=== PATIENT | female | born 1965 | race Caucasian/White ===

== ENCOUNTER 2016-07-08 10:23 | Emergency (ER) | payer OTHER ==
[~2016-07-08] VITALS: Ht 162.6 cm; Wt 74.0 kg
[2016-07-08 12:32] LABS: HEMATOCRIT 39.8 % (36.0-46.0); MCH 29.6 PG (29.0-34.0); MCHC 34.2 G/DL (30.0-36.0); MCV 86.5 FL (83-99); RBC DIS.WIDTH-SD 40.9 % (39-53); WHITE BLOOD COUNT 6.3 K/uL (4.1-10.2)
[2016-07-08 12:55] LABS: AMYLASE 25 IU/L (1-118); CHLORIDE 107 mEq/L (99-109); POTASSIUM 3.7 mEq/L (3.7-5.4); SODIUM 139 mEq/L (136-147)
[2016-07-08 12:57] LABS: GLUCOSE 89 mg/dL (70-99); QUANTITATIVE HCG < 4.0 MIU/ML
[2016-07-08 12:58] LABS: ANION GAP 9 MEQ/L (2-14)
[2016-07-08 12:59] LABS: TOTAL BILIRUBIN 0.4 mg/dL (0.0-1.0)
[2016-07-08 13:00] LABS: ALKALINE PHOSPHATASE 72 IU/L (3-129)
[2016-07-08 13:01] LABS: GFR ESTIMATE (CALCULATED) > 59 mL/min/
[2016-07-08 13:02] LABS: UREA NITROGEN (BUN) 10 mg/dL (9-23)
[2016-07-08 13:04] LABS: LIPASE 8 U/L (1.0-51.0)
[2016-07-08] MEDS ORDERED: OMEPRAZOLE40 M1 PO (13:15)
[2016-07-08 13:39] LABS: MEAN PLAT.VOLUME 10.9 uM^3 (9.5-12.4); PLAT.SUFFICIENCY ADEQUATE; PLATELET COUNT 256 K/uL (156-360)
[2016-07-08 13:47] VITALS: BP 152/113
== END 2016-07-08 13:48 | disposition home or self-care (01) ==
LOC: EME 10:23 → EXP 10:23
PROVIDERS: Physician Assistant
DX: K27.9 Peptic ulcer, site unspecified, unspecified as acute or chronic, without hemorrhage or perforation (principal); Z87.891 Personal history of nicotine dependence
CPT/HCPCS: 74022; 76705; 80053; 82150; 83690; 84702; 85027; 99281; 99284